=== PATIENT | female | born 1970 | race Caucasian/White ===

== ENCOUNTER 2017-02-01 15:22 | Emergency (ER) | payer OTHER ==
[~2017-02-01] VITALS: Ht 162.6 cm; Wt 35.0 kg
[2017-02-01 15:30] VITALS: Ht 162.6 cm; Wt 35.0 kg
[2017-02-01] MEDS ORDERED: SOD CHLORIDE 0.9% 1,000 ML IV STA (16:51)
[2017-02-01 17:10] LABS: BASOPHILS % 0.7 % (0.0-2.0); EOSINOPHILS # 0.1 10^3/ul (0.0-0.5); EOSINOPHILS % 2.4 % (0.0-7.0); HEMOGLOBIN 12.1 g/dl (12.0-16.0); LYMPHOCYTES # 1.7 10^3/ul (0.8-2.9); MEAN CORPUSCULAR HEMOGLOBIN 28.5 pg (29.0-33.0); MEAN CORPUSCULAR HGB CONC 32.7 g/dl (32.0-37.0); MEAN CORPUSCULAR VOLUME 87.1 fl (82.0-101.0); MEAN PLATELET VOLUME 8.9 fl (7.4-10.4); MONOCYTE # 0.4 10^3/ul (0.3-0.9); MONOCYTES % 6.8 % (0.0-11.0); NEUTROPHIL # 3.4 10^3/ul (1.6-7.5); NEUTROPHILS % 59.6 % (39.0-77.0); PLATELET COUNT 272 10^3/UL (140-415); RED BLOOD COUNT 4.25 10^6/ul (4.20-5.40); RED CELL DISTRIBUTION WIDTH 13.9 % (11.5-14.5); WHITE BLOOD COUNT 5.7 10^3/ul (4.8-10.8)
[2017-02-01 17:34] LABS: ALBUMIN 3.7 g/dl (3.3-4.9); ALBUMIN/GLOBULIN RATIO 1.19; BILIRUBIN,INDIRECT 0.3 mg/dl (0-1.1); BILIRUBIN,TOTAL 0.3 mg/dl (0.2-1.3); CALCIUM 9.5 mg/dl (8.4-10.2); CREATININE 0.49 mg/dl (0.44-1.00); POTASSIUM 4.2 mmol/L (3.5-5.1); TOTAL PROTEIN 6.8 g/dl (6.1-8.1)
--- NOTE | 2017-02-01 17:35 | RADRPT ---
PROCEDURE: Chest radiograph. CLINICAL INDICATION: Abdominal pain. TECHNIQUE: Single portable frontal view. COMPARISON: None relevant listed. FINDINGS: The lungs are clear. No pleural effusion or focal parenchymal opacity. The cardiomediastinal silhouette is normal. No suspicious bone lesion. No free intraperitoneal air identified. IMPRESSION: No acute cardiopulmonary abnormality. RPTAT: PP Physician Annie Date Time Electronically viewed and signed by Physician Annie on 02/01/2017 17:35 LG/
[2017-02-01 17:51] LABS: FREE T3 2.39 pg/ml (2.77-5.27)
[2017-02-01 18:04] LABS: THYROID STIMULATING HORMONE 1.52 MIU/L (0.465-4.680)
[2017-02-01] MEDS ORDERED: DRON2.5C10 PO (19:38)
--- NOTE | 2017-02-01 19:42 | ERD ---
ER Documentation Chief Complaint Date/Time DATE: 02/01/17 TIME: 19:39 Chief Complaint Massive weight loss over 1 year with difficulty walking HPI This a 46-year-old female who is here for weight loss. The patient's loss of her 100 pounds over the past year and a half. The patient does have a very decreased appetite and sometimes. He says she does not eat much but does try to eat healthy. Patient is getting gradually more weak as the time is going on. The patient is using a walker at this point to get around. There is any focal neurological complaints but does feel general weakness. The patient has lost significant muscle tone and fat. She has no GI symptoms no chest pain shortness of breath on exertion no headaches blurry vision no black stool diarrhea. ROS All systems reviewed and are negative except as per history of present illness. Medications Home Meds Active Scripts Dronabinol* (Marinol*) 2.5 Mg Capsule, 2.5 MG PO TID, #90 CAP Prov:TERRA COTO DO 02/01/17 Allergies Allergies: Coded Allergies: No Known Allergy (Unverified , 02/01/17) PMhx/Soc Medical and Surgical Hx: pt denies Medical Hx, pt denies Surgical Hx Hx Alcohol Use: No Hx Substance Use: No Hx Tobacco Use: No Smoking Status: Never smoker FmHx Family History: No coronary disease Physical Exam Vitals Vital Signs Date Time Temp Pulse Resp B/P Pulse Ox O2 Delivery O2 Flow Rate FiO2 02/01/17 15:30 98.8 81 14 110/75 98 Physical Exam Const: [Well-developed, cachectic Head: Atraumatic, normocephalic Eyes: Normal Conjunctiva, PERRLA, EOMI, normal sclera, no nystagmus ENT: Normal External Ears, Nose and Mouth, moist mucus membranes. Neck: Full range of motion. No meningismus, no lymphadenopathy. Resp: Clear to auscultation bilaterally, no wheezing, rhonchi, rales Cardio: Regular rate and rhythm, no murmurs, S1 S2 present Abd: Soft, non tender x 4, non distended. Normal bowel sounds, no guarding or rebound, no pulsitile abdominal masses or bruits Skin: No petechiae or rashes, no ecchymosis , no maculopapular rash Back: No midline or flank tenderness Ext: No cyanosis, or edema, FROM x 4, normal inspection, neurovascularly intact x 4 Neur: Awake and alert, STR 5/5 x 4, sensation intact x 4, no focal findings, cerebellum intact Psych: Normal Mood and Affect Result Diagram: 02/01/17 1700 02/01/17 1700 Results 24 hrs Laboratory Tests Test 02/01/17 17:00 White Blood Count 5.710^3/ul Red Blood Count 4.2510^6/ul Hemoglobin 12.1g/dl Hematocrit 37.0% Mean Corpuscular Volume 87.1fl Mean Corpuscular Hemoglobin 28.5pg Mean Corpuscular Hemoglobin Concent 32.7g/dl Red Cell Distribution Width 13.9% Platelet Count 87615^3/UL Mean Platelet Volume 8.9fl Neutrophils % 59.6% Lymphocytes % 30.0% Monocytes % 6.8% Eosinophils % 2.4% Basophils % 0.7% Nucleated Red Blood Cells % 0.0/100WBC Neutrophils # 3.410^3/ul Lymphocytes # 1.710^3/ul Monocytes # 0.410^3/ul Eosinophils # 0.110^3/ul Basophils # 0.010^3/ul Nucleated Red Blood Cells # 0.010^3/ul Sodium Level 147mmol/L Potassium Level 4.2mmol/L Chloride Level 104mmol/L Carbon Dioxide Level 29mmol/L Anion Gap 18 Blood Urea Nitrogen 24mg/dl Creatinine 0.49mg/dl Glucose Level 74mg/dl Calcium Level 9.5mg/dl Total Bilirubin 0.3mg/dl Direct Bilirubin 0.00mg/dl Indirect Bilirubin 0.3mg/dl Aspartate Amino Transf (AST/SGOT) 16IU/L Alanine Aminotransferase (ALT/SGPT) 29IU/L Alkaline Phosphatase 49IU/L Total Protein 6.8g/dl Albumin 3.7g/dl Globulin 3.10g/dl Albumin/Globulin Ratio 1.19 Thyroid Stimulating Hormone (TSH) 1.520MIU/L Free Thyroxine 1.19ng/dl Free Triiodothyronine (T3) pg/mL 2.39pg/ml Current Medications Medications (Trade) Dose Ordered Sig/Isidra Route PRN Reason Start Time Stop Time Status Last Admin Dose Admin Sodium Chloride (NS) 1,000 ml @ 1,000 mls/hr Q1H STAT IV 02/01/17 16:51 02/01/17 17:50 DC 02/01/17 17:02 Procedures/MDM Chest x-ray is negative per radiologist Patient's thyroid is normal, chest x-ray is normal, lab work is relatively unremarkable. I discussed the patient is to follow-up in 1 to get a new doctor and I will refer them to a new physician. Patient needs more lab testing done to find out why she is losing some much weight. Could be a psychological disease cancer or other. We will try a prescription for Marinol to try to increase her appetite I did review with him extensively home diet care Departure Diagnosis: Primary Impression: Weight loss Condition: Stable Patient Instructions: Losing Weight Referrals: GIOVANNA GUERRA MD, APOSTOLOS A. DO Feb 01, 2017 19:42
[2017-02-01 19:51] VITALS: BP 121/71; PULSE 82; RESP 19; TEMP 98.1
== END 2017-02-01 19:53 | disposition home or self-care (01) ==
LOC: E/R 15:22
DX: R63.4 Abnormal weight loss (principal)
CPT/HCPCS: 36415; 71010; 80053; 84439; 84443; 84481; 85025; J7030; Z7502